=== PATIENT | male | born 1970 | race Caucasian/White ===

== ENCOUNTER 2016-04-04 20:52 | Inpatient (IN) ==
--- NOTE | 2016-04-04 21:41 | PROVIDER DOCUMENTATION ---
HPI-Respiratory General <AllyssaDavon HerbieEmily - Last Filed: 04/05/16 00:17> - General Source: patient - History of Present Illness-Resp Quality of Pain: reports: aching Severity in ED: reports: mild Onset/Duration: reports: 1 week ago Timing: reports: still present Cough Quality/Degree: reports: moderate Episode Frequency: no prior episodes Associated Symptoms: reports: cough, lightheadedness, shortness of breath Similar Symptoms Previously?: No Recently seen or treated by another doctor?: No <Nioclasa Gudino - Last Filed: 04/05/16 01:52> - General Chief Complaint: Shortness of Breath Stated Complaint: SOB,HURTING ALL OVER Time Seen by Provider: 04/04/16 21:39 Allergies/Adverse Reactions: Patient Allergies Allergy/AdvReac Type Severity Reaction Status Date / Time No Known Allergies Allergy Verified 09/16/14 15:34 Home Medications: Home Medication List Medication Instructions Recorded Confirmed Last Taken Type Methadone 150 mg PO DAILY 04/04/16 04/04/16 04/04/16 History - History of Present Illness-Resp Nature of Presenting Problem: 45 year old M presents to the ED with a cc of shortness of breath and light headedness x1 week. Pt states that he is progressively getting worse. Pt states that he has had a cough and is causing a headache. (Nicolasa Gudino) Review of Systems - Adult - REVIEW OF SYSTEMS - ADULT Constitutional: denies: chills, fever Eyes: reports: no symptoms reported Ears, Nose, Mouth & Throat: reports: no symptoms reported Cardiovascular: reports: no symptoms reported Respiratory: reports: cough, shortness of breath Gastrointestinal: reports: poor appetite. denies: nausea Genitourinary: reports: no symptoms reported Musculoskeletal: reports: no symptoms reported Integumentary: reports: no symptoms reported Neurological: reports: dizziness/vertigo, headache/migraines Psychiatric: reports: no symptoms reported Endocrine: reports: no symptoms reported Hematologic/Lymphatic: reports: no symptoms reported Allergic/Immunologic: reports: no symptoms reported All Other Systems: Reviewed and Negative <Nicolasa Gudino - Last Filed: 04/05/16 01:52> Past History - Adult - PAST MEDICAL HISTORY-ADULT Review of Records: reports: Nursing Assessment Review, Medications Reviewed Major Childhood Illnesses: reports: denies history Cardiovascular: reports: HTN Respiratory: reports: denies history Gastrointestinal: reports: denies history Obstetrical/Gynecological: reports: denies history Genitourinary: reports: denies history Musculoskeletal: reports: denies history Neurological: reports: denies history Endocrine/Immune: reports: denies history Other Conditions: reports: denies history - PRIOR SURGERIES/PROCEDURES Surgical/Procedure History: reports: orthopedic (extremity) (left wrist) - IMMUNIZATION STATUS Childhood Immunizations: See Nurse Assessment Flu Vaccine: See Nurse Assessment - FAMILY HISTORY Family History: reviewed, not pertinent - SOCIAL HISTORY Smoking: cigarettes, greater than 1 pack/day Provider spent 3-5 mins advising pt. on dangers of tobacco.: Discussed manners to quit use, and f/u contacts for add'l counseling. Substance Use: none/never Alcohol Use Frequency: never <Nicolasa Gudino - Last Filed: 04/05/16 01:52> Physical Exam-General - PHYSICAL EXAM-ADULT Initial Vital Signs Reviewed: Yes - CONSTITUTIONAL General Appearance: appears well, alert, no apparent distress - RESPIRATORY Respiratory: chest non-tender, decreased breath sounds, wheezing - CARDIOVASCULAR Cardiovascular: normal peripheral pulses, regular rate, rhythm, no edema - GASTROINTESTINAL (ABDOMEN) Abdominal Exam: normal bowel sounds, non tender, soft - MUSCULOSKELETAL Extremity: normal inspection, no pedal edema - SKIN Integumentary: normal color, normal turgor, warm/dry - PSYCHIATRIC Psych/Mental Status: normal mood/affect, normal thought content, normal thought process, oriented x 3 <Nicolasa Gudino - Last Filed: 04/05/16 01:52> Progress <Davon Spivey - Last Filed: 04/05/16 00:17> - EKG 1 Time of EKG reading by physician:: 21:34 EKG Read and Signed by:: Davon Spivey EKG Interpretation (*Must complete 3 of following elements*): Normal Rate: 76 Rhythm: NSR [place]: normal - XRAY 1 XRAY Study: Chest Impression: Abnormal (Moderate motion artifact with no pulmonary emboli visualized. Small emboli can be obscured in this setting. Multifocal patchy opacities throughout te lungs, mostly in the upper lobes. This could be infection. Mediastinal enlarged lymphnodes are indeterminate.: Dr. Almodovar- Radiologist [facility]) - CT/MRI 1 CT Study: Angiogram CT Results: patchy infiltrates diffusly yoseph. R apex, no obvious PE: Dr. Spivey- SHRUTHI JACOBSON - CONSULTS/PCP/HOSPITALIST Notification #1 *Consult/PCP/Hospitalist*: Dr. Mooney-[facility] Time Discussed: 00:10 Consult Disposition: Admit <Nicolasa Gudino - Last Filed: 04/05/16 01:52> - PLAN OF CARE/RESULTS Progress/Plan/Lab Results: plan of care: imaging, labs, medications, EKG, breathing treatments 2210: D-dimer noted high, CT angiogram will be ordered. Orders Category Date Time Status Admit - [facility] Routine AdmDCTranf 04/05/16 00:11 Ordered Activity - Up Ad Jennifer ORDERED Care 04/05/16 00:11 Ordered Cardiac Monitoring DIRECTED Care 04/04/16 21:17 Active Oxygen Therapy- ED Nursing DIRECTED Care 04/04/16 21:17 Active Saline Loc DIRECTED Care 04/05/16 00:11 Ordered Saline Loc NOW Care 04/04/16 21:17 Active Vital Signs Order ARRIVAL TO ROOM Care 04/05/16 00:11 Ordered Vital Signs Order PER PADDS Care 04/05/16 00:11 Ordered Regular Diet Diet 04/05/16 00:12 Ordered ANGIOGRAM/PULMONARY ARTERIES [CT] Stat Exams 04/04/16 22:33 Taken CHEST-2 VIEWS [RAD] Stat Exams 04/04/16 21:17 Taken CBC WITH ELECTRONIC DIFF [HEME] Stat Lab 04/04/16 21:28 Completed CK PROFILE [SP CHEM] Stat Lab 04/04/16 21:28 Completed COMPREHENSIVE METABOLIC PANEL [CHEM] Stat Lab 04/04/16 21:28 Completed D-DIMER PL [COAG] Stat Lab 04/04/16 21:28 Completed MAGNESIUM [CHEM] Stat Lab 04/04/16 21:28 Completed PRO B-NATRIURETIC PEPTIDE Stat Lab 04/04/16 21:28 Completed [address]IME WITH INR PL [COAG] Stat Lab 04/04/16 21:[address] [COAG] Stat Lab 04/04/16 21:28 Completed TROPONIN T Stat Lab 04/04/16 21:28 Completed Albuterol 2.5MG/Ipratrop 0.5MG [Duoneb (A & A)] Med 04/04/16 21:43 Discontinued 3 ml .ROUTE .STK-MED ONE Albuterol 2.5MG/Ipratrop 0.5MG [Duoneb (A & A)] Med 04/04/16 21:42 Discontinued 3 ml INH NOW ONE Albuterol 2.5MG/Ipratrop 0.5MG [Duoneb (A & A)] Med 04/05/16 03:30 Ordered 3 ml INH RTQ4H Albuterol [Albuterol Neb] Med 04/04/16 21:43 Discontinued 5 mg .ROUTE .STK-MED ONE Albuterol [Albuterol Neb] Med 04/04/16 21:42 Discontinued 5 mg INH NOW ONE Azithromycin 500 mg/Ns [Zithromax 500 mg/Ns] 250 ml Med 04/05/16 00:03 Active IV NOW CefTRIAXONE 1 GM/NS [Rocephin 1 gm/Ns] 50 ml Med 04/04/16 21:42 Discontinued IV NOW Methylprednisolone Sod Succ [Solu-Medrol] Med 04/04/16 21:42 Discontinued 125 mg IV NOW ONE Methylprednisolone Sod Succ [Solu-Medrol] Med 04/05/16 00:15 Ordered 125 mg IV Q8H Aerosol Treatments Routine Oth 04/04/16 21:42 Completed Aerosol Treatments Routine Ot 04/05/16 00:12 Ordered Aerosol Treatments Stat Ot 04/04/16 21:42 Completed Aerosol Treatments Stat Ot 04/05/16 00:12 Ordered Oxygen Device Routine Ot 04/05/16 00:12 Ordered EKG [EKG] Stat Ther 04/04/16 21:17 Ordered Laboratory Tests 04/04/16 04/04/16 04/04/16 21:28 21:28 21:28 WBC RBC Hgb Hct MCV MCH MCHC RDW Std Deviation Plt Count MPV Immature Gran % (Auto) Neut % (Auto) Lymph % (Auto) [place] % (Auto) Eos % (Auto) Baso % (Auto) Immature Gran # (Auto) Neut # (Auto) Lymph # (Auto) [place] # (Auto) Eos # (Auto) Baso # (Auto) Segmented Neutrophils Band Neutrophils Lymphocytes Monocytes PT INR APTT (Factor Assay) D-Dimer Sodium 133 L Potassium 3.9 Chloride 92 L Carbon Dioxide 31 Anion Gap 10 BUN 6 L Creatinine 0.7 Estimated GFR/1.73 m2 > 60 BUN/Creatinine Ratio 9 Glucose 129 H Calculated Osmolality 266 Calcium 9.1 Magnesium 2.1 Total Bilirubin 0.30 AST 18 ALT 10 Alkaline Phosphatase 112 Creatine Kinase 28 Troponin T < 0.010 Ran-H-Tksxsufjsru Pept 158 H Total Protein 7.7 Albumin 3.6 Globulin 4.0 Albumin/Globulin Ratio 1.0 04/04/16 04/04/16 21:28 21:28 WBC 12.51 H RBC 4.22 L Hgb 12.9 L Hct 38.8 L MCV 91.9 MCH 30.6 MCHC 33.2 RDW Std Deviation 13.3 Plt Count 209 MPV 9.6 Immature Gran % (Auto) 0.6 H Neut % (Auto) 71.6 Lymph % (Auto) 19.1 L [place] % (Auto) 6.9 Eos % (Auto) 0.1 Baso % (Auto) 1.7 H Immature Gran # (Auto) 0.08 H Neut # (Auto) 8.96 H Lymph # (Auto) 2.39 [place] # (Auto) 0.86 H Eos # (Auto) 0.01 Baso # (Auto) 0.21 H Segmented Neutrophils 71 Band Neutrophils 1 Lymphocytes 20 L Monocytes 8 PT 13.8 INR 1.03 APTT (Factor Assay) 32.9 D-Dimer 0.55 H Sodium Potassium Chloride Carbon Dioxide Anion Gap BUN Creatinine Estimated GFR/1.73 m2 BUN/Creatinine Ratio Glucose Calculated Osmolality Calcium Magnesium Total Bilirubin AST ALT Alkaline Phosphatase Creatine Kinase Troponin T Ofg-H-Nogsnmbprjh Pept Total Protein Albumin Globulin Albumin/Globulin Ratio Vital Signs - 24 hr 04/04/16 04/04/16 04/04/16 21:08 21:45 21:54 Temperature 97.1 F L Pulse Rate 76 88 73 Respiratory 16 18 14 Rate Blood Pressure 182/100 155/97 O2 Sat by Pulse 91 L 94 L 96 Oximetry 04/04/16 22:43 Temperature Pulse Rate 81 Respiratory 11 L Rate Blood Pressure 154/105 O2 Sat by Pulse 93 L Oximetry Pt/Family given results. Pt will be admitted to the Hospitalist Group. PT/ Family in agreement with plan of care. (Nicolasa Gudino) Departure - Departure Time of Disposition Order: 00:17 Certified Medical Emergency: Emergent <Davon Spivey - Last Filed: 04/05/16 00:17> <Nicolasa Gudino - Last Filed: 04/05/16 01:52> - Departure DIAGNOSIS: Pneumonia Qualifiers: Pneumonia type: due to unspecified organism Laterality: bilateral Lung location : unspecified part of lung Qualified Code(s): J18.9 - Pneumonia, unspecified organism Disposition: ADMITTED INPATIENT 09 Condition: Fair Attestation - Scribe Verification/Attestation Scribe:: Nicolasa Gudino Acting as Scribe for:: Davon Spivey Scribe documention review:: This chart was documented by a scribe and accurately reflects the service the provider performed and the decisions made by the provider. <Nicolasa Gudino - Last Filed: 04/05/16 01:52> Physician Attestation - Physician Attestation I, the provider, attest to the following statement:: Davon Spivey Physician documentation Attestation:: This documentation recorded by the scribe accurately reflects the service I personally performed and the decisions made by me. <Nicolasa Gudino - Last Filed: 04/05/16 01:52>
[2016-04-04] MEDS ORDERED: SOLU-MEDROL IV ONE (21:42)
[2016-04-04] MEDS ORDERED: ROCEPHIN 1 GM/NS 50 ML IV ONE (21:42)
[2016-04-04] MEDS ORDERED: DUONEB (A & A) INH ONE (21:42)
[2016-04-04] MEDS ORDERED: ALBUTEROL NEB INH ONE (21:42)
[2016-04-04] MEDS ORDERED: ALBUTEROL NEB ONE (21:43)
[2016-04-04] MEDS ORDERED: DUONEB (A & A) ONE (21:43)
[2016-04-04 21:58] LABS: BASO% 1.7 % (0.0-0.8); EOS# 0.01 X1000 (0.0-0.7); EOS% 0.1 % (0.0-10.0); HEMATOCRIT 38.8 % (42.0-52.0); HEMOGLOBIN 12.9 g/dL (14.0-18.0); IMM GRAN# 0.08 X1000 (0.0-0.04); IMM GRAN% 0.6 % (0.0-0.5); LYMPH# 2.39 X1000 (1.2-3.4); LYMPH% 19.1 % (20.5-51.1); MANUAL DIFF NEEDED? YES; MCH 30.6 PG (27-31); MCHC 33.2 g/dL (33-37); MCV 91.9 FL (81-99); MONO# 0.86 X1000 (0.11-0.59); MONO% 6.9 % (1.7-9.3); MPV 9.6 FL (7.4-10.4); NEUT% 71.6 % (42.2-75.2); PLT 209 X1000 (130-400); RBC 4.22 XMIL (4.7-6.1)
[2016-04-04 22:05] LABS: INR 1.03 (0.86-1.15); PROTIME 13.8 Seconds (12.1-15.5)
[2016-04-04 22:06] LABS: PTT PL 32.9 Seconds (22.6-43.9)
[2016-04-04 22:13] LABS: BANDS 1 % (0-1); LYMPHS 20 % (21-51); MONO 8 % (1-9)
[2016-04-04 22:30] LABS: AGAP 10; ALBUMIN 3.6 g/dL (3.5-5.0); ALKALINE PHOSPHATASE 112 U/L (32-122); BUN 6 mg/dL (8-22); CALCIUM 9.1 mg/dL (8.8-10.2); CHLORIDE 92 mmol/L (98-107); CK PROFILE 28 U/L (24-204); COSMO 266; GOT 18 U/L (10-34); GPT 10 U/L (10-44); MAGNESIUM 2.1 mg/dL (1.5-2.7); POTASSIUM 3.9 mmol/L (3.5-5.1); SODIUM 133 mmol/L (136-145); TCO2 31 mmol/L (25-35); TOTAL PROTEIN 7.7 g/dL (6.3-8.3)
[2016-04-05] MEDS ORDERED: ZITHROMAX 500 MG/NS 250 ML IV ONE (00:03)
[2016-04-05] MEDS ORDERED: NICODERM PATCH TD ONE (00:15)
[2016-04-05] MEDS: DUONEB (A & A) INH SCH ×6 (02:52→22:38)
[2016-04-05] MEDS ORDERED: SOLU-MEDROL IV SCH (06:00)
--- NOTE | 2016-04-05 06:14 | EKG Report ---
Test Performed on : 04/04/2016 9:34:32 PM Test Reason : CHEST PAIN Blood Pressure : / mmHG Vent. Rate : 076 BPM Atrial Rate : 076 BPM P-R Int : 140 ms QRS Dur : 082 ms QT Int : 338 ms P-R-T Axes : 057 080 069 degrees QTc Int : 380 ms Normal sinus rhythm. Normal ECG When compared with ECG of 16-SEP-2014 15:02, fusion complexes are no longer present QT has shortened Unconfirmed Result
[2016-04-05] MEDS ORDERED: PNEUMOVAX 23 IM ONE (07:42)
--- NOTE | 2016-04-05 08:21 | Diag Imaging Result Document ---
PROCEDURE NAME: CHEST-2 VIEWS - 04/04/2016 CHEST, TWO VIEWS: INDICATION: Shortness of breath. COMPARISON: 09/16/2014. FINDINGS: There are bilateral patchy infiltrates involving the right upper as well as both mid and lower lung zones. The pulmonary vasculature does not appear congested. The heart size is within normal limits. No effusions are demonstrated. IMPRESSION: Bilateral patchy infiltrates, new from the prior study, may indicate bronchopneumonia.
--- NOTE | 2016-04-05 08:27 | Diag Imaging Result Document ---
PROCEDURE NAME: ANGIOGRAM/PULMONARY ARTERIES - 04/04/2016 CT ANGIOGRAM OF THE PULMONARY ARTERIES WITH IV CONTRAST WITH 3D RECONSTRUCTIONS: INDICATION: Shortness of breath. Preliminary interpretation was given by the on-call radiologist. FINDINGS: There is suboptimal opacification of the pulmonary arteries and motion artifact. No large proximal filling defects are appreciated to suggest acute pulmonary embolism. Evaluation of the more distal branches is limited. There are multifocal patchy alveolar infiltrates most marked within the right upper lobe but also within the right middle lobe and both lower lobes. There is no evidence for aortic aneurysm or dissection. No pleural effusion or pneumothorax. There is somewhat bulky prevascular lymphadenopathy with a prevascular node measuring 1.7 cm in short axis. There are calcified mediastinal lymph nodes as well and subcarinal lymphadenopathy. There is left hilar lymphadenopathy. IMPRESSION: 1. No evidence for acute pulmonary emboli although there is motion artifact and suboptimal opacification of the pulmonary arteries which limits evaluation. 2. Multifocal opacities throughout both lungs mostly in the upper lobes which is nonspecific but could represent bronchopneumonia. Correlate clinically. 3. Mediastinal lymphadenopathy.
[2016-04-05] MEDS ORDERED: FLUZONE QUAD 2016-2017 SYRINGE IM ONE (09:00)
[2016-04-05] MEDS: METHADONE PO SCH (10:20)
[2016-04-05] MEDS: LOVENOX SUBQ SCH (10:21)
[2016-04-05 13:37] LABS: URINE SOURCE CLEAN CATCH
[2016-04-05 13:43] LABS: BILIRUBIN URINE NEGATIVE (NEGATIVE); BLOOD URINE NEGATIVE (NEGATIVE); CLARITY CLEAR (CLEAR); COLOR YELLOW; LEUKOCYTES URINE TRACE (NEGATIVE); NITRITE URINE NEGATIVE (NEGATIVE); PH URINE 6.5; PROTEIN URINE 1+(30 mg/dL) mg/dL (NEGATIVE); SP GRAVITY URINE 1.015; UROBILINOGEN URINE 1+(1 mg/dL)
[2016-04-05 13:48] LABS: URINE CULTURE PL NEEDED? YES; URINE EPITHELIAL CELLS <10 /HPF (<10); URINE WBC <10 /HPF (<10)
--- NOTE | 2016-04-05 14:03 | HISTORY AND PHYSICAL ---
CHIEF COMPLAINT: Shortness of breath and productive cough. HISTORY OF PRESENTING ILLNESS: This is a 45-year-old, male, who presented to [facility] ER with complaints of shortness of breath and lightheadedness for 1 week that had progressively worsened. States that he has had a cough and that the cough seemed to be causing him to have a headache. Workup in the ER showed a white blood cell count of 12.51. His D-dimer was 0.55. Did a pulmonary arteriogram that showed no evidence for an acute PE. Multifocal opacities throughout both of the lungs, mostly in the upper lobes that could represent a bronchopneumonia. So he was admitted for further evaluation and treatment. PAST MEDICAL HISTORY: Hypertension, and is currently receiving methadone treatment. PAST SURGICAL HISTORY: Right wrist surgery. FAMILY HISTORY: Heart disease and hypertension. SOCIAL HISTORY: He smokes 1 pack of cigarettes a day. Denied any alcohol or illicit drug use currently, but again, he is receiving methadone treatment. The patient did not elaborate on his past history. Lives with family. ALLERGIES: He has no known drug allergies. HOME MEDICATIONS: He takes methadone 150 mg p.o. daily. LABORATORY DATA: Showed a white blood cell count of 12.51, a hemoglobin of 12.9 , hematocrit 38.8, platelets 209. PT and INR of 13.8 and 1.03 with a D-dimer of 0.55. Sodium of 133, potassium 3.9, chloride 92, CO2 of 31, BUN of 6, creatinine 0.7, glucose of 129, magnesium of 2.1. Creatine kinase of 28. Troponin is less than 0.010 with a proBNP of 158. Chest x-ray showed bilateral patchy infiltrates that were new from a prior study that indicated bronchopneumonia. Pulmonary arteriogram showed no evidence for an acute PE. Multifocal opacities throughout both lungs, mostly in the upper lobes that could represent bronchopneumonia and mediastinal lymphadenopathy. EKG showed normal sinus rhythm at 76. REVIEW OF SYSTEMS: He denied any fever, chills, blurred vision, dizziness. Was positive for fatigue, decreased appetite. Denied any chest pain. Was positive for cough and shortness of breath. Generalized body aches. Denied any constipation, diarrhea, burning or hurting with urination or abdominal pain. PHYSICAL EXAMINATION: VITAL SIGNS: On arrival showed a temperature of 97.1, pulse 76, respirations 16 , blood pressure was 182/100, he was saturating 91% on 4 L. Currently, he has been 4 L saturating 94% this a.m. Blood pressure is 121/97, pulse 73, respirations 18, temperature 97.6. GENERAL: This is a 45-year-old male who is lying in the bed, and answers questions appropriately. HEENT: Normocephalic and atraumatic. Pupils are equal, round, reactive to light. Extraocular movements are intact. Oropharynx and nares are clear. NECK: Supple. LUNGS: With expiratory wheezes and rhonchi throughout lung [place]. Equal lung expansion and chest wall movement noted. HEART: With regular rate and rhythm. No murmurs, rubs, or gallops. ABDOMEN: Soft, nontender, nondistended. Bowel sounds are present x4 quadrants. EXTREMITIES: There is no clubbing, cyanosis, or edema. NEUROLOGICAL: The cranial nerves 2-12 are grossly intact. ASSESSMENT: 1. Bilateral bronchial pneumonia. 2. Leukocytosis. 3. Elevated D-dimer. 4. Tobacco abuse. PLAN: He was admitted to the medical unit at [facility]. Placed on O2 per protocol. Incentive spirometry. Regular diet. Blood cultures x2 are pending. He will continue Rocephin 1 gram IV q.24. We will place him on Solu-Medrol 80 mg IV q.8 and we will wean this as patient improves. Azithromycin 500 mg IV q.24. He is on Lovenox 40 mg subcu q.24 for DVT prophylaxis. Nicotine patch transdermally 21 mg daily. Continue his methadone, DuoNeb q.4 hours. Check a UA today also and recheck a CBC and a BMP in the a.m. Dictated by STEPHY Petersen for Khris Mooney MD pt examined, agree with above, likely has copd exacerbation, with pneumonia will need outpt pfts, [facility] MTDD
[2016-04-05] MEDS: SOLU-MEDROL IV SCH ×2 (14:24→22:04)
[2016-04-05] MEDS: NICODERM PATCH TD SCH (14:24)
[2016-04-05] MEDS: ROCEPHIN 1 GM/NS 50 ML IV SCH (22:04)
[2016-04-05] MEDS ORDERED: NS 500 ML ONE (22:08)
[2016-04-05] MEDS: ZITHROMAX 500 MG/NS 250 ML IV SCH (23:06)
[2016-04-06] MEDS: DUONEB (A & A) INH SCH ×6 (04:07→23:52)
[2016-04-06] MEDS: SOLU-MEDROL IV SCH ×3 (04:38→21:44)
[2016-04-06 06:11] LABS: BASO% 0.1 % (0.0-0.8); HEMATOCRIT 35.7 % (42.0-52.0); HEMOGLOBIN 11.4 g/dL (14.0-18.0); IMM GRAN# 0.17 X1000 (0.0-0.04); IMM GRAN% 0.8 % (0.0-0.5); LYMPH# 1.62 X1000 (1.2-3.4); LYMPH% 7.7 % (20.5-51.1); MANUAL DIFF NEEDED? YES; MCH 29.8 PG (27-31); MCHC 31.9 g/dL (33-37); MCV 93.2 FL (81-99); MONO# 0.85 X1000 (0.11-0.59); MONO% 4.1 % (1.7-9.3); NEUT% 87.3 % (42.2-75.2); PLT 292 X1000 (130-400); RBC 3.83 XMIL (4.7-6.1)
[2016-04-06 06:50] LABS: AGAP 9; BUN 10 mg/dL (8-22); CALCIUM 9.2 mg/dL (8.8-10.2); CHLORIDE 95 mmol/L (98-107); COSMO 272; SODIUM 135 mmol/L (136-145); TCO2 31 mmol/L (25-35)
[2016-04-06 07:18] LABS: LYMPHS 10 % (21-51); MONO 2 % (1-9)
[2016-04-06] MEDS: LOVENOX SUBQ SCH (08:39)
[2016-04-06] MEDS: METHADONE PO SCH (08:40)
[2016-04-06] MEDS: NICODERM PATCH TD SCH (08:40)
[2016-04-06] MEDS ORDERED: DUONEB (A & A) INH PRN (15:43)
[2016-04-06] MEDS ORDERED: TYLENOL PO PRN (15:47)
[2016-04-06] MEDS ORDERED: ZOFRAN IV PRN (15:47)
[2016-04-06] MEDS ORDERED: AMBIEN PO PRN (15:47)
[2016-04-06] MEDS: ROCEPHIN 1 GM/NS 50 ML IV SCH (21:43)
[2016-04-06] MEDS: ZITHROMAX 500 MG/NS 250 ML IV SCH (22:54)
[2016-04-07] MEDS: DUONEB (A & A) INH SCH ×5 (03:42→20:25)
[2016-04-07] MEDS ORDERED: MAALOX PLUS LIQUID PO ONE (04:07)
[2016-04-07] MEDS: SOLU-MEDROL IV SCH ×3 (04:25→19:47)
[2016-04-07 06:27] LABS: AGAP 8; BUN 14 mg/dL (8-22); CHLORIDE 96 mmol/L (98-107); COSMO 273; POTASSIUM 4.4 mmol/L (3.5-5.1); SODIUM 136 mmol/L (136-145); TCO2 33 mmol/L (25-35)
[2016-04-07 06:39] LABS: BASO% 0.1 % (0.0-0.8); HEMATOCRIT 34.4 % (42.0-52.0); IMM GRAN# 0.35 X1000 (0.0-0.04); IMM GRAN% 1.4 % (0.0-0.5); LYMPH# 1.54 X1000 (1.2-3.4); LYMPH% 6.3 % (20.5-51.1); MANUAL DIFF NEEDED? YES; MCH 30.3 PG (27-31); MCV 94.8 FL (81-99); MONO# 0.99 X1000 (0.11-0.59); MPV 10.1 FL (7.4-10.4); NEUT% 88.2 % (42.2-75.2); PLT 327 X1000 (130-400); RBC 3.63 XMIL (4.7-6.1)
[2016-04-07 08:33] LABS: LYMPHS 9 % (21-51); MONO 4 % (1-9)
[2016-04-07] MEDS: METHADONE PO SCH (08:48)
[2016-04-07] MEDS: NICODERM PATCH TD SCH (08:48)
[2016-04-07] MEDS: LOVENOX SUBQ SCH (08:48)
[2016-04-07] MEDS ORDERED: LEVAQUIN 750 MG/D5W 150 ML IV SCH (17:00)
--- NOTE | 2016-04-07 17:03 | Diag Imaging Result Document ---
PROCEDURE NAME: CHEST-2 VIEWS - 04/07/2016 FRONTAL AND LATERAL CHEST, 2 VIEWS: COMPARISON: Compared to 04/04/2016. FINDINGS: The lungs are well expanded. The heart is not enlarged. The vessels are not distended. Small patchy infiltrates persist. No pleural effusions. No free air beneath the diaphragm. IMPRESSION: Persistent small patchy infiltrates.
--- NOTE | 2016-04-07 17:14 | PROGRESS NOTE ---
DATE: 04/07/2016 SUBJECTIVE: Patient has no focal complaints. OBJECTIVE: Vital signs: Blood pressure 155/77, heart rate 68, respiratory rate 20, temperature 97.4 degrees. Cardiovascular: Regular rate and rhythm. Pulmonary: Bilateral breath sounds. Clear to auscultation. GI: Soft, nontender, nondistended. Bowel sounds were positive. He had intermittent wheezing. DATA: White count up to 24,000, hemoglobin and hematocrit 11, 34, platelets 327,000. Basic was normal. PROBLEM LIST: 1. Chronic obstructive pulmonary disease exacerbation. Continue nebs, wean steroids, wean O2 as tolerated. 2. Multifocal pneumonia. Will continue treatment, continue both treatments and follow. Significant hypoxia so we will add Levaquin to his Rocephin and follow. 3. Chronic pain disorder. He is on methadone for withdrawal issues. Will repeat his chest x-ray today and follow. Continue to monitor very closely.
[2016-04-07] MEDS: CULTURELLE PO SCH (20:38)
[2016-04-07] MEDS: ROCEPHIN 1 GM/NS 50 ML IV SCH (20:38)
[2016-04-08] MEDS: DUONEB (A & A) INH SCH ×5 (00:35→15:00)
[2016-04-08] MEDS: SOLU-MEDROL IV SCH ×2 (03:14→11:55)
[2016-04-08 07:23] LABS: HEMOGLOBIN 11.4 g/dL (14.0-18.0); MCH 30.4 PG (27-31); MCHC 32.6 g/dL (33-37); MCV 93.3 FL (81-99); MPV 9.7 FL (7.4-10.4); RBC 3.75 XMIL (4.7-6.1)
[2016-04-08 07:45] LABS: AGAP 7; BUN 16 mg/dL (8-22); CHLORIDE 98 mmol/L (98-107); COSMO 276; POTASSIUM 4.5 mmol/L (3.5-5.1); SODIUM 137 mmol/L (136-145); TCO2 32 mmol/L (25-35)
[2016-04-08] MEDS: CULTURELLE PO SCH (08:50)
[2016-04-08] MEDS: LOVENOX SUBQ SCH (08:50)
[2016-04-08] MEDS: METHADONE PO SCH (08:50)
[2016-04-08] MEDS: NICODERM PATCH TD SCH (08:51)
[2016-04-08 16:19] VITALS: BP 200/94
[2016-04-08] MEDS ORDERED: CATAPRES PO ONE (16:33)
--- NOTE | 2016-04-08 18:32 | DISCHARGE SUMMARY ---
ADMISSION DATE: 04/05/2016 DISCHARGE DATE: DISCHARGE DIAGNOSES: 1. Chronic obstructive pulmonary disease exacerbation. 2. Multifocal pneumonia. HOSPITAL COURSE: Briefly this is a 45-year-old white male who came in on the , looks like the with shortness of breath and cough and hypoxia. He was evaluated in the ER. He had lightheadedness and cough for about a week. Cigarettes greater than a pack a day smoker for probably 20-25 years. He was admitted. Chest x-ray was not really revealing however CT angiogram showed diffuse patchy infiltrates. He had an elevated D-dimer which prompted the CTA, well very mildly elevated 0.55. In any case he was slow to recover but he did end up recovering. White count was initially 12, went up to 20, peaked at 24 down to 19 of course that was after several days of IV steroids. On the he had clinically improved. His steroids were further weaned. He was placed on Levaquin and Rocephin. On the he was breathing comfortably on room air. After ambulation his O2 saturations were only 91% at the lowest, heart rate went up to 109, saturations were 93% at rest so he did not need home oxygen fortunately. Wheezing had essentially resolved. I felt stable for discharge on the . Strep and Legionella antigen were negative. DISCHARGE MEDICATIONS: Methadone 150 daily. HOME MEDICATION: Combivent q.6, Levaquin 500 daily for 7 days and a Medrol Dosepak. DISCHARGE CONDITION: Stable. [facility] Return for worsening shortness of breath or cough. TIME SPENT: 32-minute discharge.
[2016-04-08] MEDS ORDERED: SOLU-MEDROL IV SCH (23:00)
== END 2016-04-08 18:55 | disposition home or self-care (01) | DRG 190 ==
LOC: P.ED 20:52 → P.MEDSURG 04-05 00:27
PROVIDERS: ATTEND Internal Medicine
DX: J44.0 Chronic obstructive pulmonary disease with (acute) lower respiratory infection (principal); J18.0 Bronchopneumonia, unspecified organism; F11.20 Opioid dependence, uncomplicated; J44.1 Chronic obstructive pulmonary disease with (acute) exacerbation; I10 Essential (primary) hypertension; F17.210 Nicotine dependence, cigarettes, uncomplicated; Z71.6 Tobacco abuse counseling; R79.1 Abnormal coagulation profile; R09.02 Hypoxemia; G89.4 Chronic pain syndrome; Z82.49 Family history of ischemic heart disease and other diseases of the circulatory system
CPT/HCPCS: 71020; 71275; 80048; 80053; 81001; 82550; 82948; 83735; 83880; 84484; 85025; 85027; 85379; 85610; 85730; 87040; 87088; 87899; 90732; 93005; 94640; 94761; 94799; 96365; 96366; 96367; 96375; J0456; J0696; J1650; J2920; J2930; J7040; Q2038; Q9967; S0109